=== PATIENT | female | born 1995 | race African-American/Black ===

== ENCOUNTER 2020-03-23 19:24 | Emergency (ER) | payer OTHER ==
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
[2020-03-23 19:52] VITALS: BMI 22.7
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
[2020-03-23] MEDS ORDERED: KETOROLAC TROMETHAMINE 30 MG/1 ML VIAL IM ONE (23:28)
[2020-03-23] MEDS ORDERED: KETOROLAC TROMETHAMINE 30 MG/1 ML VIAL ONE (23:42)
[2020-03-24 02:03] VITALS: BP 120/77; PULSE 68; TEMP 97.8
== END 2020-03-24 00:05 | disposition home or self-care (01) ==
LOC: JER 19:24
PROC: 3E0233Z Introduction of Anti-inflammatory into Muscle, Percutaneous Approach (ICD-10-PCS; principal; 2020-03-23)
DX: M54.2 Cervicalgia (principal); R51 Headache; V89.2XXA Person injured in unspecified motor-vehicle accident, traffic, initial encounter
CPT/HCPCS: 70450-TC; 72125-TC; 84703; 99285-25